=== PATIENT | male | born 1985 | race Caucasian/White ===

== ENCOUNTER → 2016-05-22 | Outpatient (CLI) | payer OTHER ==
[~2016-05-22] MED LIST: CONRAY-43 43% 50ML VIAL (Q9960) As Ordered ONE; LIDOCAINE 1% MDV 20ML VIAL As Ordered ONE; TRIAMCINOLONE ACETONIDE SUSP 40 MG/ML VIAL (J3301) As Ordered ONE
--- NOTE | 2016-05-22 17:00 | REP ---
Left hip injection The procedure was performed under the direct supervision of Dr. Orr. The benefits and risks including but not limited to pain infection and bleeding and anaphylaxis were explained to the patient and informed consent was obtained. The left femoral neck was localized using fluoroscopic guidance. The skin was prepped and draped in a sterile fashion. 1% lidocaine was used as a local anesthetic. Using fluoroscopic guidance a 22-gauge spinal needle was inserted and advanced to the femoral neck. 0.5 ml of Conray 43 was injected to verify placement. 10 ml of a solution containing 9 ml of 1% Xylocaine and 1 ml of Kenalog 40 mg was injected. The needle was then removed. The patient tolerated the procedure well and there were no immediate complications. 3 seconds of fluoro time was utilized for this procedure. Reviewed by JACINTA Wasserman 05/22/2016 04:08 PSigned by Manohar Orr MD 05/22/2016 04:51 P
== END | disposition home or self-care (01) ==
LOC: M RADPRO 09:29
PROVIDERS: ATTEND Chiropractor
DX: M24.852 Other specific joint derangements of left hip, not elsewhere classified (principal)
CPT/HCPCS: 20610; 77002; J3301; Q9960

== ENCOUNTER → 2016-08-19 | Outpatient (CLI) | payer OTHER ==
--- NOTE | 2016-08-22 09:12 | SLEEPCENT ---
DATE OF PROCEDURE: 08/19/2016 ORDERED BY: Nirmaal Elliott. Nocturnal polysomnography was performed for evaluation of sleep apnea syndrome symptoms in this patient with a history of excessive somnolence, morning headaches and nonrestorative sleep. 7 hours and 54 minutes of data were reviewed. There were 399 minutes of sleep identified. Sleep latency was prolonged at 42 minutes Rapid eye movement (REM) latency was normal at 99 minutes. Sleep architecture showed severe fragmentation. Overall sleep efficiency was good at 85% and there were four REM periods appreciated. The patient's EKG showed a sinus rhythm with an average heart rate of 75 beats per minute. EEG showed normal wave forms for awake and sleep stages. There were 204 respiratory events identified of 10 seconds in duration or greater for an apnea-hypopnea index of 30.7. The events were primarily obstructive not exclusive to sleep stage nor body posture. Arousals from respiratory events occurred 9.6 times per hour and oxygen desaturations were seen into the 80s. Some limb activity was noted as well. There are two trains of 30 events. Limb movement arousal index was 5.3. IMPRESSION: Obstructive sleep apnea syndrome, severe (G47.33). Apnea-hypopnea index 30.7. RECOMMENDATION: The patient should be encouraged to return to the sleep disorder center for pressure therapy. In the interim, alcohol and sedative avoidance should be practiced and caution exercised during the operation of motor vehicles.
== END ==
LOC: M SLEEP 19:46
PROVIDERS: ATTEND Nurse Practitioner Adult Health
DX: G47.33 Obstructive sleep apnea (adult) (pediatric) (principal)

== ENCOUNTER → 2016-09-09 | Outpatient (CLI) | payer OTHER ==
--- NOTE | 2016-09-12 10:18 | SLEEPCENT ---
DATE OF PROCEDURE: 09/09/2016 REQUESTING PROVIDER: Nirmala Elliott NP INTERPRETATION: Nocturnal polysomnography was performed for the titration of pressure therapy in this patient with obstructive sleep apnea syndrome, apnea-hypopnea index of 30. For testing, a ResMed Quattro full face mask of medium size was used, 5 cm of water pressure were applied to the circuit and the lights were extinguished. 8 hours and 23 minutes of data were reviewed. There were 433 minutes of sleep identified. Sleep latency was prolonged at 43 minutes. Rapid eye movement (REM) latency was prolonged at 190 minutes. Sleep architecture improved over the course of testing. There were three REM periods appreciated. Overall sleep efficiency was 87%. Electrocardiogram (EKG) showed a sinus rhythm with an average heart rate of 65 beats per minute. Electroencephalogram (EEG) showed reasonably normal waveforms for awake and sleep. Respiratory events were found best palliated with CPAP to a pressure of 10. Some limb activity was appreciated, but there were no trains of events. Limb movement arousal index was 6. The remaining measures of sleep physiology were normal. IMPRESSION: Obstructive sleep apnea syndrome (G47.33). RECOMMENDATIONS: Nightly use of pressure therapy at 10 cm of water.
== END ==
LOC: M SLEEP 19:46
PROVIDERS: ATTEND Nurse Practitioner Adult Health
DX: G47.33 Obstructive sleep apnea (adult) (pediatric) (principal)